=== PATIENT | female | born 1970 | race Two or more races ===

== ENCOUNTER 2022-01-23 19:52 | Inpatient (IN) | payer OTHER ==
[~2022-01-23] VITALS: Ht 162.6 cm; Wt 67.1 kg
== END 2022-01-28 13:25 | disposition home or self-care (01) | DRG 743 ==
LOC: ER 19:52 → OB/GYN 01-24 10:50 → SEC-K 01-24 10:50 → OB/GYN 01-24 13:38
PROVIDERS: ADMIT Obstetrics & Gynecology; ATTEND Specialist
PROC: 0UB00ZZ Excision of Right Ovary, Open Approach (ICD-10-PCS; principal; 2022-01-24)
PROC: 0UT90ZZ Resection of Uterus, Open Approach (ICD-10-PCS; 2022-01-24)
PROC: 0UT70ZZ Resection of Bilateral Fallopian Tubes, Open Approach (ICD-10-PCS; 2022-01-24)
PROC: 0UT20ZZ Resection of Bilateral Ovaries, Open Approach (ICD-10-PCS; 2022-01-24)
PROC: 0DNW0ZZ Release Peritoneum, Open Approach (ICD-10-PCS; 2022-01-24)
DX: D25.1 Intramural leiomyoma of uterus (principal); N72 Inflammatory disease of cervix uteri; Z20.822 Contact with and (suspected) exposure to COVID-19; N83.12 Corpus luteum cyst of left ovary; N73.6 Female pelvic peritoneal adhesions (postinfective); N83.291 Other ovarian cyst, right side; N80.0 Endometriosis of uterus